=== PATIENT | female | born 1985 | race American Indian/Alaskan Native ===

== ENCOUNTER 2017-02-25 12:41 | Emergency (ER) | payer SELFPAY ==
[2017-02-25] MEDS ORDERED: TORADOL IM ONE (16:04)
--- NOTE | 2017-02-25 16:10 | Emergency Department Report ---
ED Lower Extremity HPI - General Chief Complaint: Fall Stated Complaint: FALL, LEFT KNEE INJURY ,SWOLLEN Time Seen by Provider: 02/25/17 14:44 Source: patient Mode of arrival: Ambulatory Limitations: No Limitations - History of Present Illness Initial Comments: This is a 31-year-old female nontoxic, well nourished in appearance, no acute signs of distress presents to the ED complaining of left knee pain and swelling times one day. Patient stated she was walking down her steps and her left knee twisted and gave out and then she developed severe pain to the region. Patient denies any trauma to the region. Denies loss of consciousness or head trauma. Denies numbness, tingling, fever, chills, joint redness, chest pain, short of breath, stiff neck, headache, blurry vision, nausea vomiting. Patient describes pain as 10 out of 10 described as aching. Patient denies any allergies or past medical history. MD Complaint: knee injury -: Gradual, days(s) (1) Injury: Knee: Left Type of Injury: inversion Place: street/outdoors Severity: moderate Severity scale (0 -10): 10 Improves With: immobilization Worsens With: weight bearing, movement Context: walking Associated Symptoms: swelling, able to partially bear weight, ambulatory. denies: snap/pop sensation, numbness, tingling, unable to bear weight - Related Data Previous Rx's Medication Instructions Recorded Last Taken Type traMADol [Ultram 50 MG tab] 50 mg PO Q6HR PRN #20 tablet 02/25/17 Unknown Rx Allergies Allergy/AdvReac Type Severity Reaction Status Date / Time No Known Allergies Allergy Unverified 02/25/17 13:15 ED Review of Systems ROS: Stated complaint: FALL, LEFT KNEE INJURY ,SWOLLEN Other details as noted in HPI Constitutional: denies: chills, fever Eyes: denies: eye pain, eye discharge, vision change ENT: denies: ear pain, throat pain Respiratory: denies: cough, shortness of breath, wheezing Cardiovascular: denies: chest pain, palpitations Endocrine: no symptoms reported Gastrointestinal: denies: abdominal pain, nausea, diarrhea Genitourinary: denies: urgency, dysuria, discharge Musculoskeletal: denies: back pain, joint swelling, arthralgia Skin: denies: rash, lesions Neurological: denies: headache, weakness, paresthesias Psychiatric: denies: anxiety, depression Hematological/Lymphatic: denies: easy bleeding, easy bruising ED Past Medical Hx - Past Medical History Previous Medical History?: No - Social History Smoking Status: Current Every Day Smoker - Medications Home Medications: Home Medications Medication Instructions Recorded Confirmed Last Taken Type traMADol [Ultram 50 MG tab] 50 mg PO Q6HR PRN #20 tablet 02/25/17 Unknown Rx ED Physical Exam - General Limitations: No Limitations General appearance: alert, in no apparent distress - Head Head exam: Present: atraumatic, normocephalic, normal inspection - Eye Eye exam: Present: normal appearance, PERRL, EOMI. Absent: scleral icterus, conjunctival injection, nystagmus, periorbital swelling, periorbital tenderness Pupils: Present: normal accommodation - ENT ENT exam: Present: normal exam, normal orophraynx, mucous membranes moist, TM's normal bilaterally, normal external ear exam - Neck Neck exam: Present: normal inspection, full ROM. Absent: tenderness, meningismus, lymphadenopathy, thyromegaly - Respiratory Respiratory exam: Present: normal lung sounds bilaterally. Absent: respiratory distress, wheezes, rales, rhonchi, stridor, chest wall tenderness, accessory muscle use, decreased breath sounds, prolonged expiratory - Cardiovascular Cardiovascular Exam: Present: regular rate, normal rhythm, normal heart sounds. Absent: systolic murmur, diastolic murmur, rubs, gallop - GI/Abdominal GI/Abdominal exam: Present: soft, normal bowel sounds. Absent: distended, tenderness, guarding, rebound, rigid, diminished bowel sounds - Rectal Rectal exam: Present: deferred - Extremities Exam Extremities exam: Present: normal inspection, full ROM, tenderness, normal capillary refill. Absent: pedal edema, joint swelling, calf tenderness - Expanded Lower Extremity Exam Left Hip exam: Present: normal inspection, full ROM Upper Leg exam: Present: normal inspection, full ROM Knee exam: Present: normal inspection, full ROM, tenderness, swelling, full knee extension. Absent: abrasion, laceration, ecchymosis, deformity, crepidus, dislocation, erythema, effusion, pain w/ pronation/supination, posterior draw sign, pain/laxity with valgus, pain/laxity with varus Lower Leg exam: Present: normal inspection, full ROM. Absent: Galo's sign Ankle exam: Present: normal inspection, full ROM Foot/Toe exam: Present: normal inspection, full ROM Neuro vascular tendon exam: Present: no vascular compromise. Absent: pulse deficit, abnormal cap refill, motor deficit, sensory deficit, tendon deficit, extremity cold to touch, pallor, abnormal 2-point discrimination, decreased fine /light touch, foot drop, significant pain with passive ROM of distal joint Gait: Positive: observed and limited by pain - Back Exam Back exam: Present: normal inspection, full ROM. Absent: tenderness, CVA tenderness (R), CVA tenderness (L), muscle spasm, paraspinal tenderness, vertebral tenderness, rash noted - Neurological Exam Neurological exam: Present: alert, oriented X3, CN II-XII intact, normal gait, reflexes normal - Psychiatric Psychiatric exam: Present: normal affect, normal mood - Skin Skin exam: Present: warm, dry, intact, normal color. Absent: rash ED Course Vital Signs 02/25/17 13:01 Temperature 98.0 F Pulse Rate 95 H Respiratory 18 Rate Blood Pressure 138/88 Blood Pressure 138/88 [Left] O2 Sat by Pulse 99 Oximetry - Reevaluation(s) Reevaluation #1: 02/25/17 16:10 Patient is speaking in full sentences with no signs of distress noted. ED Lower Extremity MDM - Radiology Data Radiology results: report reviewed interpreted by me: Dictated by radiologist Normal examination - Medical Decision Making This is a 31-year-old female that presents with left knee strain. Patient was examined myself. Patient is stable. X-ray has been obtained and dictated by radiologist. Normal examination. Patient received ice and Toradol in the ED. Patient also received a knee immobilizer with crutches. Patient was referred to Dr. Bernstein in 3-5 days for follow-up and for possible MRI. At time time of discharge, the patient does not seem toxic or ill in appearance. No acute signs of distress noted. Patient agrees to discharge treatment plan of care. No further questions noted by the patient. Critical care attestation.: If time is entered above; I have spent that time in minutes in the direct care of this critically ill patient, excluding procedure time. ED Disposition Clinical Impression: Knee strain Qualifiers: Encounter type: initial encounter Laterality: left Qualified Code(s): S86.912A - Strain of unspecified muscle(s) and tendon(s) at lower leg level, left leg, initial encounter Disposition: DC- TO HOME OR SELFCARE Is pt being admited?: No Does the pt Need Aspirin: No Condition: Stable Instructions: Knee Pain (ED), Knee Immobilizer (ED), Crutch Instructions (ED), Tramadol (By mouth), RICE Therapy (ED) Additional Instructions: Follow-up with Dr. Bernstein or another orthopedic doctor in 3-5 days for possible MRI or if symptoms worsen and continue return to emergency room as soon as possible Rest, elevate, ice extremity. Prescriptions: traMADol [Ultram 50 MG tab] 50 mg PO Q6HR PRN #20 tablet PRN Reason: Pain Referrals: PRIMARY CARE, [Primary Care Provider] - 3-5 Days CARISSA BERNSTEIN MD [Staff Physician] - 3-5 Days [facility] [Outside] - 3-5 Days [facility] [Outside] - 3-5 Days Forms: Work/School Release Form(ED)
--- NOTE | 2017-02-25 16:18 | XRay Report ---
Left knee 3 views. Findings: The joint space is normal. The patella is intact and in normal position. A moderate joint effusion is present. Bony mineralization is normal. Impression: Moderate suprapatellar effusion with no other significant findings.
[2017-02-25 17:15] VITALS: BP 124/76
== END 2017-02-25 17:11 | disposition home or self-care (01) ==
LOC: ED 12:41
DX: S76.912A Strain of unspecified muscles, fascia and tendons at thigh level, left thigh, initial encounter (principal); F17.210 Nicotine dependence, cigarettes, uncomplicated; W10.9XXA Fall (on) (from) unspecified stairs and steps, initial encounter; Y93.89 Activity, other specified; Y92.89 Other specified places as the place of occurrence of the external cause; Y99.8 Other external cause status
CPT/HCPCS: 29505; 73562; 96372; 99283; J1885